=== PATIENT | male | born 2000 | race Caucasian/White ===

== ENCOUNTER 2025-05-11 12:22 | Emergency (ER) | payer SELFPAY ==
[2025-05-11 12:27] VITALS: BP 144/99
[2025-05-11 12:58] VITALS: BMI 28.0
--- NOTE | 2025-05-11 13:38 | ED.GENMED ---
History of Present Illness
General
Chief Complaint: Skin Surface Trauma
Source: patient
Exam Limitations: none
Time Seen by Provider: 05/11/25 13:17
History of Present Illness
History of Present Illness:
25yo right hand dominant male presenting for evaluation of a left little finger laceration. 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 Bleeding controlled on
arrival. No paresthesias. He reports that his tetanus shot is up-to-date.
Phy Exam
General Physical Exam
General Presentation: well appearing and no apparent distress
General Skin: warm and dry
General Habitus: normal
General Mental: alert
ENT Exam
ENT Exam: normocephalic
Neurological Exam
Neurological Exam: alert
Musculoskeletal Exam
Musculoskeletal Exam: other (L little finger: 2cm laceration noted to the medial aspect of the digit. Does not require suture repair. No active bleeding. ROM of DIP and PIP joints intact. Cap refill and sensation intact at distal fingertip. )
Skin Exam
Skin Exam: warm/dry
Psychiatric Exam
Psychiatric Exam: normal mood/affect
Course
Orders/Labs/Results
Orders:
Orders
05/11/25 12:30
CR Hand - Left Min 3 Views Urgent
Comment:
Reason For Exam: injury
Vital Signs
Initial and Last Documented VS:
Initial Vital Signs
Temp Pulse Resp BP Pulse Ox
98.0 F 81 20 144/99 99
05/11/25 12:27 05/11/25 12:27 05/11/25 12:27 05/11/25 12:27 05/11/25 12:27
Last Documented Vital Signs
Temp Pulse Resp BP Pulse Ox
98.0 F 74 16 144/99 100
05/11/25 12:27 05/11/25 13:50 05/11/25 13:50 05/11/25 12:27 05/11/25 13:50
MDM/Problems Addressed
Differential Diagnosis Includes:
25yoM here with a laceration to the L little finger with a chain saw. 2cm laceration noted on exam that does not require suture repair. Digit is neurovascularly intact. Wound irrigated and steri-strips applied. X-rays negative for fracture. Home
wound care discussed and advised return to the ED with any signs of infection.
*Pulse Oximetry
SaO2: 99
Oxygen Mode of Delivery: Room air
*Critical Care Note
Total Time (30-74mins, 75-104mins- exclusive of procedures): Not Applicable
ED Attending Note
-
Portions of this chart may have been created with voice recognition software.� Occasional wrong word or��sound alike� substitutions may have occurred due to the inherent limitations of voice recognition software.
Discharge Plan
Departure
Patient Disposition: Home (Routine Discharge)
Date of Disposition: 05/11/25
Time of Disposition: 13:39
Patient with high blood pressure during this ER visit?: Yes
Discharge Problem:
Laceration of left little finger
Instructions: Wound Care (DC)
Activity Restrictions/Additional Instructions:
Steri-strips will come off on their own. You can remove if still in place in 1 week. Change gauze dressing daily. Keep wound clean and dry.
Return to the ER with any signs of infection.
Interventions
Interventions:
*Risk Screen - Suicide Last Done: 05/11/25 14:00
*General Assessment Last Done: 05/11/25 12:58
*Neglect/Abuse Screening Last Done: 05/11/25 14:00
*ED- Fall Risk Assessment Last Done: 05/11/25 12:58
*ED COVID-19 Vaccine History Last Done: 05/11/25 12:58
*Nursing Disposition Last Done: 05/11/25 14:00
ED-Skin Assessment Last Done: 05/11/25 12:49
Discharge Date and Time
Discharge Date/Time: 05/11/25 14:00
Print Language: TRINIDADIAN
--- NOTE | 2025-05-11 13:39 | EDRN ---
Tere Lindquist PA in to see ptJose
== END 2025-05-11 14:00 | disposition home or self-care (01) ==
LOC: EMR 12:22
PROVIDERS: EMERGENCY PHYSICIAN Emergency Medicine
DX: S61.217A Laceration without foreign body of left little finger without damage to nail, initial encounter (principal); W29.3XXA Contact with powered garden and outdoor hand tools and machinery, initial encounter
CPT/HCPCS: 99283; 73130